=== PATIENT | female | born 1955 | race American Indian/Alaskan Native ===

== ENCOUNTER 2017-05-14 19:35 | Emergency (ER) | payer MEDICAID ==
[2017-05-14 21:05] LABS: Basophils % (Auto) 0.6 % (0.0-1.8); Eosinophils % (Auto) 1.5 % (0.0-4.3); Hematocrit 40.4 % (30.3-42.9); Hemoglobin 13.4 gm/dl (10.1-14.3); Mean Corpuscular HGB Conc 33 % (30-34); Mean Corpuscular Hemoglobin 30 pg (28-32); Mean Corpuscular Volume 91 fl (79-97); Platelet Count 188 K/mm3 (140-440); Red Blood Count 4.46 M/mm3 (3.65-5.03); Red Cell Distribution Width 12.4 % (13.2-15.2); White Blood Count 9.2 K/mm3 (4.5-11.0)
[2017-05-14 21:24] LABS: Anion Gap 18 mmol/L; Blood Urea Nitrogen 18 mg/dL (7-17); Carbon Dioxide 25 mmol/L (22-30); Glucose 139 mg/dL (65-100); Potassium 4.1 mmol/L (3.6-5.0); Sodium 141 mmol/L (137-145)
[2017-05-15] MEDS ORDERED: BENADRYL PO ONE (02:00)
[2017-05-15] MEDS ORDERED: REGLAN PO ONE (02:00)
[2017-05-15] MEDS ORDERED: DELTASONE PO ONE (02:00)
--- NOTE | 2017-05-15 02:09 | Emergency Department Report ---
ED Rash HPI - HPI Chief Complaint: Skin Rash Stated Complaint: BODY RASH/ALLERGIC REACTION Time Seen by Provider: 05/15/17 01:54 Duration: Today Location: Chest, Back, Abdomen, Upper Extremities, Lower Extremities Rash Symptoms: Yes Itching (whelps , Hives ), No Facial Swelling, No Tongue/ Oral Swelling, No Breathing Difficulties, No Choking Sensation, No Wheezing/ Dyspnea, No Peeling, No Blistering, No Fever, No Lightheaded, No Malaise, No Myalgias Severity: moderate ED Review of Systems ROS: Stated complaint: BODY RASH/ALLERGIC REACTION Other details as noted in HPI Constitutional: denies: chills, fever Eyes: denies: eye pain, eye discharge, vision change ENT: denies: ear pain, throat pain, congestion Respiratory: denies: cough, orthopnea, shortness of breath, wheezing Cardiovascular: denies: chest pain, palpitations Endocrine: no symptoms reported Gastrointestinal: denies: abdominal pain, nausea, diarrhea Genitourinary: denies: urgency, dysuria, discharge Musculoskeletal: denies: back pain, joint swelling, arthralgia Skin: rash, other (hives whelps erythema pruritis ) Neurological: denies: headache, weakness, paresthesias Psychiatric: denies: anxiety, depression Hematological/Lymphatic: denies: easy bleeding, easy bruising ED Past Medical Hx - Past Medical History Previous Medical History?: Yes Hx Hypertension: Yes Hx Asthma: Yes Additional medical history: lupus - Surgical History Past Surgical History?: No - Social History Smoking Status: Never Smoker Substance Use Type: None - Medications Home Medications: Home Medications Medication Instructions Recorded Confirmed Last Taken Type Dicyclomine [Bentyl] 40 mg PO TID #12 tablet 01/25/16 Unknown Rx Lisinopril/Hydrochlorothiazide 1 tab PO QDAY 01/25/16 01/25/16 01/24/16 History [Zestoretic 20-12.5 mg] Promethazine [Phenergan TAB] 25 mg PO Q8HR PRN #12 tab 01/25/16 Unknown Rx Tolterodine [Detrol LA] 4 mg PO QDAY 01/25/16 01/25/16 01/24/16 History traMADol [Ultram] 50 mg PO Q6HR PRN #16 tablet 01/25/16 Unknown Rx EPINEPHrine [Epipen 2-Yordy] 0.3 mg IJ 2XWHS #2 auto.injct 05/15/17 Unknown Rx Metoclopramide [Reglan] 10 mg PO TID #30 tab 05/15/17 Unknown Rx Prednisone [predniSONE 10 mg 10 mg PO .TAPER #1 tab.ds.pk 05/15/17 Unknown Rx (6-Day Pack, 21 Tabs)] diphenhydrAMINE [Benadryl CAP] 25 mg PO Q8HR PRN #30 capsule 05/15/17 Unknown Rx Rash Exam - Exam General: Vital signs noted. No distress. Alert and acting appropriately. HEENT: No Periorbital Edema, No Conjuctival Injection, No Chemosis, No Perioral Edema, No Tongue Edema, No Uvular Edema, No Compromised Airway, No Drooling Lungs: Yes Good Air Exchange, No Wheezes, No Ronchi, No Stridor, No Cough, No Labored Respirations, No Retractions, No Use of Accessory Muscles, No Other Abnormal Lung Sounds Heart: Yes Regular, No Murmur Skin: Yes Urticarial Rash, Yes Erythema, No Maculopapular Rash, No Morbilliform rash, No Bulla(e), No Excoriations, No Weeping, No Tenderness, No Edema, No Encrustations, No Other Other: Positive: Abdomen Normal, Neurologic Normal, Musculoskeletal Normal ED Course Vital Signs 05/14/17 20:35 Temperature 98.4 F Pulse Rate 66 Respiratory 20 Rate Blood Pressure 189/103 O2 Sat by Pulse 100 Oximetry ED Medical Decision Making - Lab Data Result diagrams: 05/14/17 20:54 05/14/17 20:54 - EKG Data Rate: normal - Medical Decision Making pt is a 61 y/o aaf with hx of asthma who presents for rash to bilat UE, trunk and chest x 6 yrs, symptoms include itching hives no sob no wheezing no nausea or vomiting pharynx: clear mild erythema . no exudate no lesions uvula midline there is no stridor no swelling airway is patent, no sob no anxiousness, pt is ambulatory around ed and return with out nausea. plan treat for allergic reaction pt will follow up with primary doctor in 2 days pt verbalized agreement and understanding of same. Critical care attestation.: If time is entered above; I have spent that time in minutes in the direct care of this critically ill patient, excluding procedure time. ED Disposition Clinical Impression: Dermatitis Allergic reaction Qualifiers: Encounter type: initial encounter Qualified Code(s): T78.40XA - Allergy, unspecified, initial encounter Disposition: TO HOME OR SELFCARE Is pt being admited?: No Does the pt Need Aspirin: No Condition: Fair Instructions: Allergies (ED), Contact Dermatitis (ED) Prescriptions: diphenhydrAMINE [Benadryl CAP] 25 mg PO Q8HR PRN #30 capsule PRN Reason: allergies EPINEPHrine [Epipen 2-Yordy] 0.3 mg IJ 2XWHS #2 auto.injct Metoclopramide [Reglan] 10 mg PO TID #30 tab Prednisone [predniSONE 10 mg (6-Day Pack, 21 Tabs)] 10 mg PO .TAPER #1 tab.ds.pk Referrals: PRIMARY CARE, [Primary Care Provider] - 3-5 Days Forms: Work/School Release Form(ED) Time of Disposition: 02:19
[2017-05-15 03:21] VITALS: BP 200/99
== END 2017-05-15 03:26 | disposition home or self-care (01) ==
LOC: ED 19:35
DX: L30.9 Dermatitis, unspecified (principal); T78.40XA Allergy, unspecified, initial encounter; I10 Essential (primary) hypertension; J45.909 Unspecified asthma, uncomplicated
CPT/HCPCS: 36415; 80048; 82550; 85025; 99283; J7512